=== PATIENT | male | born 1995 | race Caucasian/White ===

== ENCOUNTER 2020-10-15 22:05 | Emergency (ER) | payer OTHER ==
[~2020-10-15] VITALS: Ht 188 cm; Wt 113.4 kg
[2020-10-15] MEDS ORDERED: ACETAMINOPHEN (22:13)
[2020-10-15 23:23] VITALS: BP 140/80
== END 2020-10-15 23:23 | disposition home or self-care (01) ==
LOC: ER 22:05
DX: M54.5 Low back pain (principal); G89.29 Other chronic pain; Z88.1 Allergy status to other antibiotic agents; V49.59XA Passenger injured in collision with other motor vehicles in traffic accident, initial encounter; Y93.89 Activity, other specified; Y92.488 Other paved roadways as the place of occurrence of the external cause; Y99.8 Other external cause status